=== PATIENT | female | born 1960 | race Caucasian/White ===

== ENCOUNTER → 2020-07-23 | Outpatient (CLI) | payer OTHER ==
--- NOTE | 2020-07-25 16:10 | US ---
EXAMINATION TYPE: US pelvic complete DATE OF EXAM: 07/23/2020 COMPARISON: CT CLINICAL HISTORY: N93.9 ABN UTERINE BLEEDING. Pt states episode of moderate vaginal bleeding for 1 1/ 2 weeks a little over a month ago/ Pt not on HRT's TECHNIQUE: Transabdominal (TA). Transabdominal sonographic images of the pelvis were acquired. Date of LMP: Pt states >10 years ago EXAM MEASUREMENTS: Uterus: 7.3 x 1.9 x 3.7 cm Endometrial Stripe: 0.4 cm Right Ovary: 1.7 x 1.2 x 1.5 cm Left Ovary: 1.7 x 0.8 x 1.6 cm 1. Uterus: Anteverted wnl 2. Endometrium: wnl 3. Right Ovary: wnl 4. Left Ovary: wnl 5. Bilateral Adnexa: wnl 6. Posterior cul-de-sac: wnl IMPRESSION: 1. Normal pelvic ultrasound
== END | disposition home or self-care (01) ==
LOC: RADUSWWP 16:43
PROVIDERS: ATTEND Family Medicine
DX: N93.9 Abnormal uterine and vaginal bleeding, unspecified (principal)
CPT/HCPCS: 76856

== ENCOUNTER → 2021-07-13 | Outpatient (CLI) | payer OTHER ==
--- NOTE | 2021-07-20 09:07 | MM ---
Reason for exam: screening (asymptomatic). Last mammogram was performed 8 months ago. History: Patient is postmenopausal. Family history of breast cancer in sister at age 52. Excisional biopsy of the left breast. Physical Findings: A clinical breast exam by your physician is recommended on an annual basis and results should be correlated with mammographic findings. MG Screening Mammo w CAD Bilateral CC and MLO view(s) were taken. XCCL view(s) were taken of the right breast. Prior study comparison: November 05, 2020, mammogram, performed at [facility]. March 24, 2020, mammogram, performed at [facility]. May 28, 2015, left breast MG 3d work up w/cad LT. May 14, 2015, bilateral MG foundation screening mammo. There are scattered fibroglandular densities. There is no discrete abnormality. ASSESSMENT: Negative, BI-RAD 1 RECOMMENDATION: Routine screening mammogram of both breasts in 1 year.
== END | disposition home or self-care (01) ==
LOC: RADMAMWWP 07:06
PROVIDERS: ATTEND Family Medicine
DX: Z12.31 Encounter for screening mammogram for malignant neoplasm of breast (principal); Z80.3 Family history of malignant neoplasm of breast; Z78.0 Asymptomatic menopausal state
CPT/HCPCS: 77067

== ENCOUNTER → 2021-09-07 | Outpatient (CLI) | payer OTHER ==
[2021-09-07 10:06] VITALS: BP 136/86; PULSE 74; RESP 18; TEMP 97.8
--- NOTE | 2021-09-07 10:57 | P.HPOB ---
History of Present Illness H&P Date: 09/07/21 Chief Complaint: The patient is here for her routine gynecologic exam. This is a 61-year-old 0-3 with an LMP of 2001. The patient is here to establish with this office. She is without gynecologic complaints and denies any postmenopausal bleeding. Review of Systems The patient's weight has been stable over the last year. She denies respiratory, cardiac, or G.I. problems. Musculoskeletal: She has been having right shoulder problems and is seeing somebody for this. Past Medical History Past Medical History: Thyroid Disorder Additional Past Medical History / Comment(s): Hypothyroidism. 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 History of Any Multi-Drug Resistant Organisms: None Reported Past Surgical History: Appendectomy, Breast Surgery, Hernia Repair Additional Past Surgical History / Comment(s): Abdominal hernia repair, left breast biopsy, and 2 surgeries for ectopic pregnancies. Past Psychological History: No Psychological Hx Reported Smoking Status: Never smoker Past Alcohol Use History: None Reported Past Drug Use History: None Reported Additional History: She has been since 1978. She works at [employer]. - Past Family History Sister(s) Family Medical History: Cancer Additional Family Medical History / Comment(s): Breast cancer. Mother Family Medical History: No Reported History Father Family Medical History: Myocardial Infarction ([place]) Medications and Allergies Home Medications Medication Instructions Recorded Confirmed Type Levothyroxine Sodium [Synthroid] 112 mcg PO DAILY 09/07/21 09/07/21 History Allergies Allergy/AdvReac Type Severity Reaction Status Date / Time No Known Allergies Allergy Unverified 09/07/21 10:02 Exam Vital Signs Temp Pulse Resp BP Pulse Ox 09/07/21 10:03 97.8 F 74 18 136/86 98 Intake and Output 09/06/21 09/07/21 09/07/21 22:59 06:59 14:59 Other: Weight 85.729 kg Height 5 feet 1 inch, weight 189 pounds, BMI 35.7. This is a well-developed well-nourished white female who is alert and oriented times 3 in no acute distress. HEENT: Within normal limits. NECK: Supple without mass or thyromegaly. CHEST AND LUNGS: Clear to auscultation. HEART: Regular rate and rhythm. BREASTS: Are without mass or discharge. AXILLARY EXAM: Negative for adenopathy. BACK: Negative for CVA tenderness. ABDOMEN: Soft, nontender, without palpable masses. PELVIC EXAM: Normal external genitalia with mild atrophy. Cervix and vagina appear normal with mild atrophy. The cervix is slightly friable upon doing the Pap smear. There is no unusual discharge. There is no evidence of prolapse. The uterus is midposition, nongravid size and nontender. There are no palpable adnexal masses or tenderness. RECTAL EXAM: Rectovaginal exam is negative for mass or tenderness and is negative for occult blood. EXTREMITIES: Nontender. IMPRESSION: 1. 61-year-old menopausal female with normal gynecologic exam. PLAN: 1. Pap smear cotest was performed. 2. Self breast awareness was discussed with the patient. We have also discussed symptoms associated with inflammatory breast cancer. Screening mammogram was done on 07/13/2021 and was benign. She will repeat this after 1 year. 3. Osteoporosis prevention was discussed. I have stressed the importance of adequate calcium, vitamin D and regular exercise. Recommended amounts of calcium and vitamin D were also discussed. I have recommended bone density screening since she believes she has not had this done. The order slip was given to the patient for this. 4. She has not received a Covid vaccination. She has had Covid twice. She understands the CDC recommends Covid vaccination. She will consider this. 5. Weight control was discussed with the patient. I have stressed the importance of regular meals, good nutrition, and regular exercises. 6. Colorectal cancer screening was discussed. She has not had a colonoscopy. She believes she has done Cologuard testing through her PCP. She will discuss colorectal cancer screening options with her PCP. 7. She was advised to return in one year for her annual well woman exam.
== END ==
LOC: WWCWWP 09:51
PROVIDERS: ATTEND Obstetrics & Gynecology
DX: Z01.419 Encounter for gynecological examination (general) (routine) without abnormal findings (principal); E03.9 Hypothyroidism, unspecified; Z79.890 Hormone replacement therapy

== ENCOUNTER → 2021-11-12 | Outpatient (CLI) | payer OTHER ==
[2021-11-12 14:48] LABS: Basophils # (A) 0.04 X 10*3/uL (0.00-0.10); Basophils % (A) 0.5 %; Eosinophils # (A) 0.11 X 10*3/uL (0.04-0.35); Eosinophils % (A) 1.5 %; HCT 43.1 % (37.2-46.3); HGB 13.4 g/dL (12.0-15.0); Immature Grans, Automated 0.1 %; Lymphocytes # (A) 1.73 X 10*3/uL (0.90-5.00); Lymphocytes % (A) 23.1 %; MCH 27.7 pg (27.0-32.0); MCHC 31.1 g/dL (32.0-37.0); Mean Platelet Volume 11.1 fL (9.5-12.2); Monocytes # (A) 0.52 X 10*3/uL (0.20-1.00); NRBC Per 100 WBC 0 /100 WBCS (0.0-0.0); Neutrophils # (A) 5.07 X 10*3/uL (1.80-7.70); Neutrophils % (A) 67.8 %; Platelet Count 282 X 10*3/uL (140-440); RBC 4.84 X 10*6/uL (4.10-5.20); RDW 14.1 % (11.5-14.5); WBC 7.48 X 10*3/uL (4.50-10.00)
[2021-11-12 14:49] LABS: African American GFR (CKD) 107.6 (60.0-200.0); Anion Gap 10.3 mmol/L (10.00-18.00); BUN/Creat Ratio 23.3 Ratio (12.00-20.00); Blood Urea Nitrogen 16.4 mg/dL (9.0-27.0); Carbon Dioxide 25.7 mmol/L (20.0-27.5); Non-African American GFR(CKD) 92.9 (60.0-200.0); Potassium 3.9 mmol/L (3.5-5.5)
== END | disposition home or self-care (01) ==
LOC: LABPAT 09:06
PROVIDERS: ATTEND Orthopaedic Surgery
DX: Z01.812 Encounter for preprocedural laboratory examination (principal); M75.41 Impingement syndrome of right shoulder
CPT/HCPCS: 80048; 85025; 93005

== ENCOUNTER 2021-11-26 06:05 | Day surgery (SDC) | payer OTHER ==
[2021-11-24 15:33] VITALS: BMI 34.7
--- NOTE | 2021-11-25 13:22 | HP ---
HISTORY AND PHYSICAL CHIEF COMPLAINT: Right shoulder pain. HISTORY OF PRESENT ILLNESS: The patient is a 61-year-old female who presents with progressive right shoulder pain that began about two years ago. She did have an injury. She is having anterolateral pain that radiates. She is having pain with overhead use and at night. She has tried medications in addition to injections and exercises, without much relief. She notes daily pain and symptoms. PAST MEDICAL HISTORY: Otherwise negative. PAST SURGICAL HISTORY: Negative. CURRENT MEDICATIONS: None. ALLERGIES: SHE DENIES DRUG ALLERGIES. FAMILY HISTORY: Negative. SOCIAL HISTORY: Negative for current tobacco or alcohol use. REVIEW OF SYSTEMS: Sixteen-point review of systems otherwise is reviewed and is noncontributory. PHYSICAL EXAMINATION: On examination, the patient is approximately 5 feet 1 inch, 184 pounds of endomorphic habitus. HEENT exam is nonfocal. Neck is supple. On examination of the right shoulder, she is tender about the anterior subacromial space. She has moderate crepitus. Active range of motion: Forward elevation 110 degrees, external rotation of the arm at side 50 degrees, internal rotation to L3. Motor strength 4+ over 5 for external rotation with the arm at side, 4- over 5 for abduction. Impingement test, Neer test and Speed test are positive. Her distal neurovascular exam appears intact in the right upper extremity. MRI report right shoulder was reviewed and shows a retracted rotator cuff tear with some fatty infiltration. Fluid surrounding the proximal biceps is noted. IMPRESSION: 1. Right rotator cuff tear, symptomatic. 2. Right proximal bicipital tendinosis. RECOMMENDATIONS: I talked to the patient at length regarding her condition along with treatment options. At this point she is having persistent pain and weakness despite previous conservative measures. After thorough discussion, she opts to proceed with surgery. We will plan to proceed with arthroscopic evaluation with probable subacromial decompression, rotator cuff debridement versus repair, and possible biceps tenotomy. We will likely perform that as an outpatient procedure. Risks and benefits were discussed at length in layman's terms. MMODL / IJN: [id number] /
[~2021-11-26 06:05] MED LIST: DEXAMETHASONE SOD PHOSPHATE 4 MG/ML 1 ML VIAL IV ONE; LACTATED RINGERS 1,000 ML IV SCH; MIDAZOLAM 2 MG/2 ML VIAL IV PRN; ONDANSETRON 4 MG/2 ML VIAL IVP ONE; SCOPOLAMINE 1 MG/72 HR PATCH TRANSDERM ONE
[2021-11-26] MEDS ORDERED: HYDROmorphone 0.5 MG/0.5 ML SYRINGE IVP PRN (07:00)
[2021-11-26] MEDS ORDERED: MIDAZOLAM 2 MG/2 ML VIAL IVP ONE (07:16)
[2021-11-26] MEDS ORDERED: fentaNYL (PF) 50 MCG/ML 2 ML AMP IVP ONE (07:16)
[2021-11-26] MEDS ORDERED: NEOSTIGMINE 1 MG/ML 10 ML VIAL ONE (07:45)
[2021-11-26] MEDS ORDERED: MIDAZOLAM 2 MG/2 ML VIAL ONE (07:45)
[2021-11-26] MEDS ORDERED: LIDOCAINE 1% INJ 10MG/ML (20 ML MDV) ONE (07:45)
[2021-11-26] MEDS ORDERED: EPINEPHrine (PF) 1 ML in SODIUM CHLORIDE 0.9% IRRIGATIO 3,000 ML IRRIGATION ONE ×8 (07:45)
[2021-11-26] MEDS ORDERED: fentaNYL (PF) 50 MCG/ML 2 ML AMP ONE (07:45)
[2021-11-26] MEDS ORDERED: PROPOFOL 10 MG/ML 20 ML VIAL IV ONE (07:45)
[2021-11-26] MEDS ORDERED: KETOROLAC 15 MG/ML 1 ML VIAL ONE (07:45)
[2021-11-26] MEDS ORDERED: GLYCOPYRROLATE 0.2 MG/ML 2 ML VIAL ONE (07:45)
[2021-11-26] MEDS ORDERED: ROCURONIUM 10 MG/ML (5 ML VIAL) IV ONE (07:45)
[2021-11-26] MEDS ORDERED: ROPIVACAINE 5 MG/ML 30 ML VIAL ONE (07:45)
--- NOTE | 2021-11-26 09:22 | P.OP ---
Date of Procedure: 11/26/21 Preoperative Diagnosis: Symptomatic right rotator cuff tear Postoperative Diagnosis: 4 cm retracted rotator cuff tear/high-grade partial-thickness tear intra- articular portion proximal biceps Procedure(s) Performed: Right shoulder arthroscopic subacromial decompression/biceps tenotomy/rotator cuff repair Implants: Arthrex 4.75 mm swivel lock anchor times one, 5.5 mm swivel lock anchor 1 Anesthesia: tiny KIMBALL Surgeon: Devon Meek Card Cutter Helper #1: Thang Viera Estimated Blood Loss (ml): 10 Pathology: none sent Condition: stable Disposition: PACU Indications for Procedure: The patient's 61-year-old female who presents with progressive right shoulder pain despite conservative measures. A discussion of the risks and benefits of operative intervention versus continued conservative measures was made with the patient. She opted proceed with surgery. Operative risks to include infection, neurovascular injury, development of blood clots, possible tendon rerupture, possible persistent/worsening symptoms and need for subsequent procedures was discussed. Informed consent was obtained. Operative Findings: As below Description of Procedure: The patient was brought to the operating room, and after induction of general anesthesia was placed in a beachchair position. A preoperative interscalene block was placed for postoperative analgesia. I examined the right shoulder. There was no gross block to passive motion or gross glenohumeral instability. The right upper extremity was prepped and draped in normal fashion. The bony outlines the acromion, distal clavicle, and coracoid process were outlined with a skin marker. The glenohumeral joint was inflated with 50 mL of saline utilizing a spinal needle from posterior approach. A posterior portal was made through a 5 mm skin incision 1 cm medial and inferior to the posterior lateral border time. A blunt trocar was used to easily into the joint. Diagnostic arthroscopy was performed. An anterior portal was made just lateral to the coracoid process entering the joint above the subscapularis tendon. The subscapularis tendon appeared to be intact. Anterior labrum was intact. The inferior recess was inspected. The posterior labrum was intact. There was a high-grade partial-thickness tear of the long head of the biceps involving interarticular portion. I elected to proceed with release at this point. This was released from the superior labrum with electrocautery and was allowed to retract to the bicipital groove. On inspection the rotator cuff, a large retracted tear involving the supraspinatus and infraspinatus was noted that was retracted to the level of the glenoid. The arthroscope was placed into the subacromial space. A lateral portal was made 2 centimeters inferior to the a nterior lateral border of the acromion. The rotator cuff was then mobilized with a traction suture. Adhesions were released utilizing shaver to help mobilize the tissue. I was able to bring the posterior portion of the tear back to the greater tuberosity. The soft tissue on the undersurface of the acromion was debrided with a motorized shaver and electrocautery clearly defining the anterior medial and lateral borders as well as the distal clavicle. An anterior inferior acromioplasty was performed with a motorized nathan starting anterolateral, then extending this posteriorly, then extending this medially. I converted to a flat acromion and this was verified in the posterior and lateral viewing portals. The greater tuberosity was lightly decorticating with a shaver down to a bleeding bony surface. An accessory superior lateral portal was made just off the lateral edge of the acromion for anchor placement. A 4.75 mm swivel lock anchor was placed just off the articular surface along the posterior aspect of the greater tuberosity. Good purchase was obtained. The #2 fiber tape was passed through the posterior portion the rotator cuff. A lateral anchor was placed utilizing all the traction sutures along with the fiber tape. 5.5 mm swivel lock anchor was inserted. At this point I felt I had sabianism of some posterior coverage. The anterior aspect of the cuff was not repairable. A sterile dressing was applied in addition to an abductor brace. The patient was then awoken from general anesthesia and transferred to recovery room in good condition. Blood loss was estimated at 10 mL. No complications were incurred. Sponge and needle counts were correct in the case. Thang LEAL assisted and the major components of the case to include arm positioning, anchor placement, and rotator cuff repair.
[2021-11-26 09:51] VITALS: TEMP 97
[2021-11-26 10:06] VITALS: RESP 16
[2021-11-26] MEDS ORDERED: LACTATED RINGERS 1,000 ML IV ONE (10:06)
[2021-11-26 11:01] VITALS: BP 107/66; PULSE 69
--- NOTE | 2021-11-26 14:01 | P.ANPRN ---
Procedure Note - Anesthesia - Nerve Block Performed Right Interscalene Time Out Performed: Yes (07:15) Date of Procedure: 11/26/21 Procedure Start Time: Procedure Stop Time: Location of Patient: PreOp Indication: Acute Post-Operative Pain, Requested by Surgeon (DR Meek) Sedation Type: Sedate with meaningful contact maintained Preparation: Sterile Prep Position: Supine Catheter: None Needle Types: Pajunk Needle Gauge: Other (see comment) (22g) Ultrasound used to visualize needle placement: Yes Ultrasound used to observe medication spread: Yes Injectate: 0.5% Ropivacaine (see comment for volume) (15cc) Blood Aspirated: No Pain Paresthesia on Injection Noted: No Resistance on Injection: Normal Image Stored and Saved: Yes Events: Uneventful and Well Tolerated
== END 2021-11-26 11:13 | disposition home or self-care (01) ==
LOC: OR 06:05
PROVIDERS: ATTEND Orthopaedic Surgery
DX: M75.101 Unspecified rotator cuff tear or rupture of right shoulder, not specified as traumatic (principal); M75.41 Impingement syndrome of right shoulder; G89.18 Other acute postprocedural pain
CPT/HCPCS: 29827; 29828; 29826; 64415; 76942; C1713 ×3; C1894; J2250; J1100; J2710; J0690; J2405; J0171; J2001; J3010; J2795; J1885; J2704

== ENCOUNTER → 2022-09-13 | Outpatient (CLI) | payer OTHER ==
[2022-09-13 07:52] VITALS: BP 125/82; PULSE 57; RESP 17; TEMP 98
--- NOTE | 2022-09-13 08:33 | P.HPOB ---
History of Present Illness H&P Date: 09/13/22 Chief Complaint: The patient is here for her routine gynecologic exam and ma mmogram. This is a 62-year-old with an LMP of 2001. The patient is without gynecologic complaints and denies any postmenopausal bleeding. Review of Systems The patient has gained 8 pounds over the last year. She denies respiratory, cardiac, or G.I. problems. Past Medical History Past Medical History: Thyroid Disorder Additional Past Medical History / Comment(s): Hypothyroidism. 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 History of Any Multi-Drug Resistant Organisms: None Reported Past Surgical History: Appendectomy, Breast Surgery, Hernia Repair, Orthopedic Surgery Additional Past Surgical History / Comment(s): Abdominal hernia repair, left breast biopsy, and 2 surgeries for ectopic pregnancies. Right rotator cuff surgery. Past Psychological History: No Psychological Hx Reported Smoking Status: Never smoker Past Alcohol Use History: None Reported Past Drug Use History: None Reported - Past Family History Sister(s) Family Medical History: Cancer Additional Family Medical History / Comment(s): Breast cancer. Mother Family Medical History: No Reported History Father Family Medical History: Dementia, Myocardial Infarction ([place]) Additional Family Medical History / Comment(s): . Medications and Allergies Home Medications Medication Instructions Recorded Confirmed Type Levothyroxine Sodium [Synthroid] 112 mcg PO QAM 09/07/21 09/13/22 History Allergies Allergy/AdvReac Type Severity Reaction Status Date / Time No Known Allergies Allergy Verified 09/13/22 07:48 Exam Vital Signs Temp Pulse Resp BP Pulse Ox 09/13/22 07:50 98 F 57 L 17 125/82 95 Intake and Output 09/12/22 09/13/22 09/13/22 22:59 06:59 14:59 Other: Weight 89.358 kg Height 5 feet 1 inch, weight 197 pounds, BMI 37.2. This is a well-developed well-nourished white female who is alert and oriented times 3 in no acute distress. HEENT: Within normal limits. NECK: Supple without mass or thyromegaly. CHEST AND LUNGS: Clear to auscultation. HEART: Regular rate and rhythm. BREASTS: Are without mass or discharge. AXILLARY EXAM: Negative for adenopathy. BACK: Negative for CVA tenderness. ABDOMEN: Soft, nontender, without palpable masses. PELVIC EXAM: Normal external genitalia with mild atrophy. Cervix and vagina appear normal with mild atrophy. There is no unusual discharge. There is no evidence of prolapse. The uterus is midposition, nongravid size and nontender. There are no palpable adnexal masses or tenderness. RECTAL EXAM: Rectovaginal exam is negative for mass or tenderness and is negative for occult blood. EXTREMITIES: Nontender. IMPRESSION: 1. 62-year-old menopausal female with normal gynecologic exam. PLAN: 1. Pap smear was deferred since she had a negative Pap smear cotest on 09/07/2021. 2. Self breast awareness was discussed with the patient. We have also discussed symptoms associated with inflammatory breast cancer. 3. Screening mammogram will be done today. 4. Osteoporosis prevention was discussed. I have stressed the importance of adequate calcium, vitamin D and regular exercise. Recommended amounts of calcium and vitamin D were also discussed. I have recommended a bone density test since she has never had one done. She is declining the order slip today, but would like to do it next year at her annual well woman examination. 5. She was advised to return in one year for her annual well woman exam.
--- NOTE | 2022-09-14 08:23 | MM ---
Reason for Exam: Screening (asymptomatic). Last mammogram was performed 1 year(s) and 2 month(s) ago. Patient History: Menarche at age 14. First Full-Term at age 19. Postmenopausal. Patient has history of breast feeding. Excisional Biopsy on the Left side. Sister had breast cancer, age 52. Risk Values: Carey 5 year model risk: 3.1%. NCI Lifetime model risk: 13.4%. Prior Study Comparison: 03/24/2020 Screening Mammogram, [facility]. 11/05/2020 Screening Mammogram, [facility]. 07/13/2021 Bilateral Screening Mammogram, [facility]. Tissue Density: There are scattered fibroglandular densities. Findings: Analyzed By CAD. There is no suspicious group of microcalcifications or new suspicious mass in either breast. Overall Assessment: Negative, BI-RAD 1 Management: Screening Mammogram of both breasts in 1 year. A clinical breast exam by your physician is recommended on an annual basis and results should be correlated with mammographic findings. Electronically signed and approved by: Bj Thornton M.D. Radiologis
== END ==
LOC: WWCWWP 07:41
PROVIDERS: ATTEND Obstetrics & Gynecology
DX: Z01.419 Encounter for gynecological examination (general) (routine) without abnormal findings (principal); E07.9 Disorder of thyroid, unspecified; Z79.890 Hormone replacement therapy
CPT/HCPCS: 77067

== ENCOUNTER 2023-11-10 07:33 | Day surgery (SDC) | payer OTHER ==
[2023-11-06 16:20] VITALS: BMI 37.5
--- NOTE | 2023-11-09 09:02 | P.HPOR ---
History of Present Illness H&P Date: 11/09/23 Chief Complaint: Left shoulder pain Patient is a 63-year-old [id number] female presents with left shoulder pain that began after an injury in June 2022. She notes anterior lateral pain with overhead activity. She notes weakness. She tried therapy in the past that much relief. She is having night symptoms. Review of Systems As per HPI Past Medical History Past Medical History: Hypertension, Thyroid Disorder Additional Past Medical History / Comment(s): Hypothyroidism. History of Any Multi-Drug Resistant Organisms: None Reported Past Surgical History: Appendectomy, Breast Surgery, Hernia Repair, Orthopedic Surgery Additional Past Surgical History / Comment(s): Abdominal hernia repair, left breast biopsy, and 2 surgeries for ectopic pregnancies. Right rotator cuff surgery. Past Anesthesia/Blood Transfusion Reactions: No Reported Reaction Smoking Status: Never smoker - Past Family History Sister(s) Family Medical History: Cancer Additional Family Medical History / Comment(s): Breast cancer. Mother Family Medical History: No Reported History Father Family Medical History: Dementia, Myocardial Infarction ([place]) Additional Family Medical History / Comment(s): . Medications and Allergies Home Medications Medication Instructions Recorded Confirmed Type Levothyroxine Sodium [Synthroid] 112 mcg PO QAM 09/07/21 11/06/23 History Acetaminophen [Tylenol Extra 500 - 1,000 mg PO Q8HR PRN 11/06/23 11/06/23 History Strength] Ibuprofen [Motrin Ib] 200 - 400 mg PO Q8H PRN 11/06/23 11/06/23 History Losartan-Hctz 50-12.5 mg [Hyzaar 1 tab PO DAILY 11/06/23 11/06/23 History 50-12.5] Allergies Allergy/AdvReac Type Severity Reaction Status Date / Time No Known Allergies Allergy Verified 11/06/23 15:52 Physical Examination - Shoulder left Tenderness with palpation: anterior, bicipital groove Pain: with abduction, with forward flexion ROM: forward flexion: 120 degrees ROM: internal rotation: lower lumbar ROM: external rotation: 60 degrees Crepitus with motion: Yes Strength: abduction: 4/5 Strength: external rotation: 5/5 Tests: internal impingement tests: positive, external impingment tests: positive Results The patient is a well-developed well-nourished female approximately 5 foot 1, 197 pounds of endomorphic habitus. HEENT exam is nonfocal, neck is supple. She's tender about the left shoulder anterior subacromial space. Moderate crepitus is noted. Impingement test, Neer test are positive. Her distal neurovascular exam appears intact in the left upper extremity. - Diagnostic results Shoulder MRI: image reviewed (MRI of the left shoulder is reviewed and shows a partial thickness tear involving the anterior supraspinatus.) Assessment and Plan Assessment: Left shoulder impingement/high-grade partial-thickness rotator cuff tear Plan: I talked to the patient at length regarding her condition along with treatment options. At this point she is quite symptomatic having pain and weakness despite previous conservative measures. After a thorough discussion she opts to proceed with surgery. We'll plan to proceed with arthroscopy left shoulder with probable subacromial decompression, rotator cuff debridement versus repair. We will likely perform as an outpatient procedure. Risks and benefits were discussed at length in layman's terms.
[~2023-11-10 07:33] MED LIST changes: +HYDROmorphone 0.5 MG/0.5 ML SYRINGE IVP PRN; -LACTATED RINGERS 1,000 ML IV SCH; -MIDAZOLAM 2 MG/2 ML VIAL IV PRN
[2023-11-10] MEDS: LACTATED RINGERS 1,000 ML IV SCH (08:26)
[2023-11-10] MEDS: ONDANSETRON 4 MG/2 ML VIAL IVP ONE (08:33)
[2023-11-10] MEDS: DEXAMETHASONE SOD PHOSPHATE 4 MG/ML 1 ML VIAL IVP ONE (08:33)
[2023-11-10] MEDS: MIDAZOLAM 2 MG/2 ML VIAL IV PRN (09:13)
[2023-11-10] MEDS ORDERED: SUCCINYLCHOLINE CHLORIDE 200 MG/10 ML VIAL IV ONE (09:55)
[2023-11-10] MEDS ORDERED: LIDOCAINE 1% INJ 10MG/ML (20 ML MDV) ONE (09:55)
[2023-11-10] MEDS ORDERED: PROPOFOL 10 MG/ML 20 ML VIAL IV ONE (09:55)
[2023-11-10] MEDS ORDERED: NEOSTIGMINE 1 MG/ML 10 ML VIAL ONE (09:55)
[2023-11-10] MEDS ORDERED: MIDAZOLAM 2 MG/2 ML VIAL ONE (09:55)
[2023-11-10] MEDS ORDERED: PHENYLEPHRINE 10 MG/ML VIAL ONE (09:55)
[2023-11-10] MEDS ORDERED: ROPIVACAINE 5 MG/ML 30 ML VIAL ONE (09:55)
[2023-11-10] MEDS ORDERED: fentaNYL (PF) 50 MCG/ML 2 ML AMP ONE (09:55)
[2023-11-10] MEDS ORDERED: GLYCOPYRROLATE 0.2 MG/ML 2 ML VIAL ONE (09:55)
[2023-11-10] MEDS ORDERED: ROCURONIUM 10 MG/ML (5 ML VIAL) IV ONE (09:55)
[2023-11-10] MEDS ORDERED: DEXAMETHASONE SOD PHOSPHATE 4 MG/ML 1 ML VIAL ONE (09:55)
--- NOTE | 2023-11-10 09:57 | P.ANPRN ---
Procedure Note - Anesthesia - Nerve Block Performed Left Interscalene Single Time Out Performed: Yes Date of Procedure: 11/10/23 Procedure Start Time: :12 Procedure Stop Time: :20 Location of Patient: PreOp Indication: Acute Post-Operative Pain, Dx/Pain Location (Left shoulder pain ), Requested by Surgeon Sedation Type: Sedate with meaningful contact maintained Preparation: Sterile Prep Position: Supine Catheter: None Needle Types: Pajunk Needle Gauge: 21 Ultrasound used to visualize needle placement: Yes Ultrasound used to observe medication spread: Yes Injectate: 0.5% Ropivacaine (see comment for volume) (20ml 0.5% Ropivacaine with 4mg Dexamethasone) Blood Aspirated: No Pain Paresthesia on Injection Noted: No Resistance on Injection: Normal Image Stored and Saved: Yes Events: Uneventful and Well Tolerated
[2023-11-10] MEDS: EPINEPHrine (PF) 1 ML in SODIUM CHLORIDE 0.9% IRRIGATIO 3,000 ML IRRIGATION ONE ×4 (10:00)
--- NOTE | 2023-11-10 11:22 | P.OP ---
Date of Procedure: 11/10/23 Preoperative Diagnosis: Left shoulder impingement/rotator cuff tear Postoperative Diagnosis: 2 cm rotator cuff tear, high-grade partial-thickness tear intra-articular portion long head of the biceps Procedure(s) Performed: Left shoulder arthroscopic subacromial decompression/biceps tenotomy/rotator cuff repair Implants: Arthrex 4.75 mm swivel lock anchor 1, 5.5 mm swivel lock anchor 1 Anesthesia: MICHELA, regional Surgeon: Devon Meek Applications Analyst #1: Thang Viera Estimated Blood Loss (ml): 10 Pathology: none sent Condition: stable Disposition: PACU Indications for Procedure: The patient is a 63-year-old female presents with persistent/progressive left shoulder pain and weakness despite conservative measures. A discussion of the risks and benefits of operative intervention versus continued conservative measures was made with the patient. She opted to proceed with surgery. Operative risks to include infection, neurovascular injury, development of blood clots, possible tendon rerupture, possible postoperative stiffness and possible need for subsequent procedures was discussed. Informed consent was obtained. Operative Findings: As below Description of Procedure: The patient was brought to the operating room, and after induction of general anesthesia was placed in a beachchair position. A preoperative interscalene block was placed for postoperative analgesia. I examined the left shoulder. There was no gross block to passive motion or gross glenohumeral instability. The left upper extremity was prepped and draped in normal fashion. The bony outlines the acromion, distal clavicle, and coracoid process were outlined with a skin marker. The glenohumeral joint was inflated with 50 mL of saline utilizing a spinal needle from posterior approach. A posterior portal was made through a 5 mm skin incision 1 cm medial and inferior to the posterior lateral border time. A blunt trocar was used to easily into the joint. Diagnostic arthroscopy was performed. An anterior portal was made just lateral to the coracoid process entering the joint above the subscapularis tendon. The subscapularis tendon appeared to be intact. Anterior labrum was intact. The inferior recess was inspected. The posterior labrum was intact. There was a high-grade partial-thickness tear of the long head of the biceps involving interarticular portion. It was elected to proceed with release at this point. It was released from the superior labrum with electrocautery and was allowed to retract to the bicipital groove. On inspection the rotator cuff, a full-thickn ess tear involving the anterior supraspinatus was noted measuring approximately 2 cm. No significant retraction was noted. The arthroscope was then placed into the subacromial space. A lateral portal was made 2 centimeters inferior to the anterior lateral border of the acromion. The rotator cuff was then mobilized with a traction suture. This was then easily brought back to the greater tuberosity. The soft tissue on the undersurface of the acromion was debrided with a motorized shaver and electrocautery clearly defining the anterior medial and lateral borders as well as the distal clavicle. An anterior inferior acromioplasty was performed with a motorized nathan starting anterolateral, then extending this posteriorly, then extending this medially. I converted to a flat acromion and this was verified in the posterior and lateral viewing portals. The greater tuberosity was lightly decorticating with a shaver down to a bleeding bony surface. An accessory superior lateral portal was made just off the lateral edge of the acromion for anchor placement. A 4.75 mm swivel lock anchor was then placed just off the articular surface with the appropriate starting awl. Good purchase was obtained. These fiber tapes were then passed the rotator cuff with a scorpion suture passer. A fiber link was placed into the central portion of the tear for additional fixation. A lateral row was created utilizing these tapes along with the fiber link. A 5.5 mm swivel lock anchor was placed laterally. Good purchase was obtained. Final arthroscopic view showed adequate compression at the footprint. The arthroscope was then removed. The portals were closed with simple 3-0 nylon sutures. A sterile dressing was applied in addition to a sling. The patient was then awoken from general anesthesia and transferred to recovery room in good condition. Blood loss was estimated at 10 mL. No complications were incurred. Sponge and needle counts were correct in the case. Thang LEAL assisted and the major components of the case to include arm positioning, anchor placement, and rotator cuff repair.
[2023-11-10] MEDS: LACTATED RINGERS 1,000 ML IV ONE ×2 (11:25→12:04)
[2023-11-10 11:39] VITALS: TEMP 98.2
[2023-11-10 12:53] VITALS: BP 110/67; PULSE 84; RESP 18
== END 2023-11-10 13:13 | disposition home or self-care (01) ==
LOC: OR 07:33
PROVIDERS: ATTEND Orthopaedic Surgery
DX: M75.112 Incomplete rotator cuff tear or rupture of left shoulder, not specified as traumatic (principal); S46.112A Strain of muscle, fascia and tendon of long head of biceps, left arm, initial encounter; G89.18 Other acute postprocedural pain; I10 Essential (primary) hypertension; E03.9 Hypothyroidism, unspecified; Z79.890 Hormone replacement therapy; Z79.899 Other long term (current) drug therapy; X58.XXXA Exposure to other specified factors, initial encounter
CPT/HCPCS: 64415; 84132; 29827; 29828; 29826; C1713 ×2; C1894; J2250; J0330; J1100; J2710; J0690; J2405; J0171; J2001; J3010; J2795; J2704; J2371

== ENCOUNTER → 2024-03-05 | Outpatient (CLI) | payer OTHER ==
[2024-03-05 14:11] VITALS: BP 147/85; PULSE 68; RESP 17; TEMP 98.3
--- NOTE | 2024-03-05 15:01 | P.HPOB ---
History of Present Illness H&P Date: 03/05/24 Chief Complaint: The patient is here for her routine gynecologic exam and ma mmogram. This is a 64-year-old -0-2-3 with an LMP of 2001. The patient states she has been experiencing a very slight discharge that she thinks may be urine. She also occasionally notices a pinkish tinge to this discharge. She denies any vaginal odor or vaginal itching. She is otherwise without complaints. Review of Systems The patient has gained 9 pounds over the last year. She denies respiratory, cardiac, or G.I. problems. Past Medical History Past Medical History: Hypertension, Thyroid Disorder Additional Past Medical History / Comment(s): Hypothyroidism. 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 History of Any Multi-Drug Resistant Organisms: None Reported Past Surgical History: Appendectomy, Breast Surgery, Hernia Repair, Orthopedic Surgery Additional Past Surgical History / Comment(s): Abdominal hernia repair, left breast biopsy, and 2 surgeries for ectopic pregnancies. Bilateral rotator cuff surgery. Past Anesthesia/Blood Transfusion Reactions: No Reported Reaction Past Psychological History: No Psychological Hx Reported Smoking Status: Never smoker Past Alcohol Use History: None Reported Past Drug Use History: None Reported Additional History: She has been since 1978. She works in a [employer] station. - Past Family History Sister(s) Family Medical History: Cancer, Liver Disease Additional Family Medical History / Comment(s): Breast cancer. Mother Family Medical History: No Reported History Father Family Medical History: Dementia, Myocardial Infarction (MA) Additional Family Medical History / Comment(s): . Medications and Allergies Home Medications Medication Instructions Recorded Confirmed Type Levothyroxine Sodium [Synthroid] 112 mcg PO QAM 09/07/21 11/10/23 History Acetaminophen [Tylenol Extra 500 - 1,000 mg PO Q8HR PRN 11/06/23 11/10/23 History Strength] Losartan-Hctz 50-12.5 mg [Hyzaar 1 tab PO DAILY 11/06/23 11/10/23 History 50-12.5] Allergies Allergy/AdvReac Type Severity Reaction Status Date / Time No Known Allergies Allergy Verified 03/05/24 14:08 Exam Vital Signs Temp Pulse Resp BP Pulse Ox 03/05/24 14:09 98.3 F 68 17 147/85 97 Intake and Output 03/04/24 03/05/24 03/05/24 22:59 06:59 14:59 Other: Weight 93.44 kg Height 5 foot 1 inch, weight 206 pounds, BMI 38.9. This is a well-developed well-nourished white female who is alert and oriented times 3 in no acute distress. HEENT: Within normal limits. NECK: Supple without mass or thyromegaly. CHEST AND LUNGS: Clear to auscultation. HEART: Regular rate and rhythm. BREASTS: Are without mass or discharge. AXILLARY EXAM: Negative for adenopathy. BACK: Negative for CVA tenderness. ABDOMEN: Soft, nontender, without palpable masses. There are 2 areas of scaly rough patches which the patient states have been very itchy for several months. These are both on the lower abdomen, one on the left lower quadrant is about the size of a quarter and the 1 in the right lower quadrant is about the size of a nickel. PELVIC EXAM: Normal external genitalia with mild atrophy. Cervix and vagina appear normal with mild atrophy. There is no unusual discharge. There is no evidence of prolapse. The uterus is midposition, nongravid size and nontender. There are no palpable adnexal masses or tenderness. RECTAL EXAM: Rectovaginal exam is negative for mass or tenderness and is positive for occult blood. EXTREMITIES: Nontender. IMPRESSION: 1. 64-year-old menopausal female with normal gynecologic exam. 2. The patient has noticed a slight vaginal discharge which can be pink at times. Differential diagnosis will include slight hematuria or small vaginal bleeding. 3. Heme positive stool with rectal exam. She states she does have a history of hemorrhoids but denies any recent rectal bleeding rectal bleeding. 4. Elevated blood pressure. Patient states she has not yet taken her blood pressure medicine today. 5. Dry scaly patches of skin on her lower abdomen. Possible early seborrheic keratosis. PLAN: 1. Pap smear was deferred since she had a negative Pap smear cotest on 09/07/2021. 2. Self breast awareness was discussed with the patient. We have also disc ussed symptoms associated with inflammatory breast cancer. 3. Screening mammogram will be done today. 4. The patient states she had a negative Cologuard testing within the past year. Because of her history of hemorrhoids the heme positive stool could be related to that. Plan on having her repeat the fecal occult blood test in approximately 2 weeks. I recommended that she keep her stools as soft as possible for the next 2 weeks. She can use a stool softener for this. A fecal occult blood test kit was given to the patient. She will return this to the lab for developing. Samples will be taken from 2 consecutive bowel movements. If this is positive I will will recommend colonoscopy testing. She understands it follow-up for this is important. 5. Pelvic ultrasound is recommended to determine endometrial thickness. This is being done because of the possibility of a small amount of postmenopausal vaginal bleeding. 6. Urine will be obtained for urinalysis and culture with sensitivity. 7. Kenalog 0.1% cream twice daily as needed for itching and irritation of the patches of scaly itchy skin on her lower abdomen. If this does not improve within the next 2 to 3 weeks, I have recommended that she seek the opinion of a surg tech for this. 8. She is to check her own blood pressure at home on a regular basis and follow-up with her PCP for blood pressure elevations. She will take her blood pressure medication after leaving today 9. Osteoporosis prevention was discussed. I have stressed the importance of adequate calcium, vitamin D and regular exercise. Recommended amounts of calcium and vitamin D were also discussed. Bone density testing will be done today. 10. She was advised to return in one year for her annual well woman exam and as needed.
--- NOTE | 2024-03-06 10:34 | BD ---
EXAMINATION TYPE: Axial Bone Density DATE OF EXAM: 03/05/2024 CLINICAL HISTORY: 64 years old Female. ICD-10 CODE: Z780 POST KALE WITHOUT HRT Height: 60in Weight: 206lb FRAX RISK QUESTIONS: Family History (Parent hip fracture): yes Secondary Osteoporosis: 3. Menopause before 45: yes RISK FACTORS HISTORY OF: MEDICATIONS: Thyroid Medications: Which medication: Synthroid How Lon years EXAM MEASUREMENTS: Bone mineral densitometry was performed using the [employer] System. Bone mineral density as measured about the Lumbar spine is: ----- L1-L4(G/cm2): 1.048 T Score Values are as follows: ----- L1: -1.5 ----- L2: -0.7 ----- L3: -0.9 ----- L4: -1.5 ----- L1-L4: -1.1 Z Score Values are as follows: ----- L1: -0.9 ----- L2: -0.1 ----- L3: -0.3 ----- L4: -0.9 ----- L1-L4: -0.5 First dexa at [facility] Bone mineral density about the R hip (g/cm2): 0.929 Bone mineral density about the L hip (g/cm2): 0.966 T Score values are as follows: -----R Neck: -1.8 -----L Neck: -1.8 -----R Total: -0.6 -----L Total: -0.3 Z Score values are as follows: -----R Neck: -1.0 -----L Neck: -1.0 -----R Total: -0.2 -----L Total: 0.1 First dexa at [facility] FRAX%s: The graph provided illustrates a 16.9% chance for a major osteoporotic fx and a 1.1% chance f or the hips probability for fx in 10 years time. IMPRESSION: Osteopenia (T Score between -2.5 and -1). There is slightly increased risk of fracture and the patient may be considered for treatment. Re-Screen 2-5 years. NOTE: T-SCORE=SD OF THE YOUNG ADULT MEAN.
--- NOTE | 2024-03-07 09:59 | MM ---
Reason for Exam: Screening (asymptomatic). Last mammogram was performed 1 year(s) and 6 month(s) ago. Patient History: Menarche at age 14. First Full-Term at age 19. Postmenopausal. Patient has history of breast feeding. Excisional Biopsy on the Left side. Sister had breast cancer, age 52. Risk Values: Carey 5 year model risk: 3.2%. NCI Lifetime model risk: 12.6%. Prior Study Comparison: 11/05/2020 Screening Mammogram, [facility]. 07/13/2021 Bilateral Screening Mammogram, [facility]. 09/13/2022 Bilateral MG screening mammo w CAD, [facility]. Tissue Density: There are scattered areas of fibroglandular density. Findings: Analyzed By CAD. There is no suspicious group of microcalcifications or new suspicious mass in either breast. Overall Assessment: Benign, BI-RAD 2 Management: Screening Mammogram of both breasts in 1 year. . Patient should continue monthly self-breast exams. A clinical breast exam by your physician is recommended on an annual basis. This exam should not preclude additional follow-up of suspicious palpable abnormalities. Note on Carey scores and lifetime risk: 1. A Carey score greater than 3% is considered moderate risk. If this is the case, consider specialist referral to assess eligibility for a risk reducing agent. 2. If overall lifetime risk for the development of breast cancer is 20% or higher, the patient may qualify for future screening with alternating mammogram and breast MRI. Electronically signed and approved by: Bj Thornton M.D. Radiologis
--- NOTE | 2024-03-07 10:08 | P.PN ---
Progress Note - Text Progress Note Date: 03/07/24 OUTPATIENT FOLLOW-UP NOTE TEST(S)/RESULTS: Urinalysis done on 03/05/2024 show a turbid appearance, trace protein, trace blood, trace leukocyte esterase, 3-5 red blood cells per high- power field, 11-20 white blood cells per high-powered field, calcium oxalate crystals, and 1+ bacteria. METHOD OF NOTIFICATION: Patient notified by phone on 03/07/2024. PATIENT COMMENTS: She has had some urinary frequency. She also thinks she has noticed this pinkish discharge which she thought may have been urine. 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 DIAGNOSIS: Hematuria, probable cystitis UTI. The possibility of kidney stones without pain is also diagnosis. DISCUSSION: Macrobid twice daily x 7 days p.o. Electronic prescription will be sent to [facility] in [place]. I have also encouraged her to drink plenty of fluids. She should also still proceed with the pelvic ultrasound as recommended. She was also reminded to check her blood pressure on a regular basis, and send in some samples for fecal occult blood testing. PLAN: As above. Await urine culture, which is pending.
== END ==
LOC: WWCWWP 13:40
PROVIDERS: ATTEND Obstetrics & Gynecology
DX: Z12.31 Encounter for screening mammogram for malignant neoplasm of breast (principal); N89.8 Other specified noninflammatory disorders of vagina; R19.5 Other fecal abnormalities; R03.0 Elevated blood-pressure reading, without diagnosis of hypertension; Z87.19 Personal history of other diseases of the digestive system; Z80.3 Family history of malignant neoplasm of breast; Z78.0 Asymptomatic menopausal state; Z79.899 Other long term (current) drug therapy
CPT/HCPCS: 77063; 77067; 77080

== ENCOUNTER → 2024-03-22 | Outpatient (CLI) | payer OTHER ==
--- NOTE | 2024-04-09 15:35 | P.PN ---
Progress Note - Text Progress Note Date: 04/09/24 OUTPATIENT FOLLOW-UP NOTE TEST(S)/RESULTS: Pelvic ultrasound done on 03/22/2024 shows endometrial thickening with the endometrial stripe measuring 1.6 cm. METHOD OF NOTIFICATION: The patient was notified by phone on 04/09/2024. PATIENT COMMENTS: The patient states the bloody discharge has returned after it seemed to have stopped for several days. DIAGNOSIS: Postmenopausal bleeding with thickened endometrial stripe. DISCUSSION: The patient will be scheduled for an endometrial biopsy in the near future. Hemoccult testing from stool samples brought in on 03/22/2024 were both negative and the patient will was notified about that. PLAN: As above.
--- NOTE | 2024-04-12 10:01 | US ---
Site ID [facility] Patient Stephanie Man A ID [id number] Age/Gender: 64Y, F Order # N/A Procedure US PELVIS COMPLETE TRANSVAG Date 03/22/2024 3:24:00 PM EXAMINATION TYPE: US pelvis complete transvag DATE OF EXAM: 04/07/2024 COMPARISON: Pelvic ultrasound 07/23/2020 CLINICAL INDICATION: Female, Suraj 4 year old with history of discharge for months. TECHNIQUE: Transvaginal (TV) and Transabdominal (TA) . Transabdominal and transvaginal sonographic images of the pelvis were acquired. EXAM MEASUREMENTS: Uterus: 7.9 x 2.9 x 2.8 cm Endometrial Stripe: 1.6 cm Right Ovary: Not visualized Left Ovary: Nonvisualized 1. Uterus: Anteverted wnl 2. Endometrium: Thickened 3. Right Ovary: Obscured by overlying bowel gas 4. Left Ovary: Obscured by overlying bowel gas 5. Bilateral Adnexa: wnl 6. Posterior cul-de-sac: wnl IMPRESSION: 1. Thickened endometrium for patient's age. Etiologies include endometrial hyperplasia versus carcino ma versus polyp versus fibroid. Direct visualization is recommended. 2. Nonvisualization of both ovaries due to overlying bowel gas.
== END | disposition home or self-care (01) ==
LOC: RADUSWWP 12:00
PROVIDERS: ATTEND Obstetrics & Gynecology
DX: N95.0 Postmenopausal bleeding (principal); R93.89 Abnormal findings on diagnostic imaging of other specified body structures
CPT/HCPCS: 76830; 76856

== ENCOUNTER → 2024-05-01 | Day surgery (SDC) | payer OTHER ==
[2024-05-01 12:13] VITALS: TEMP 98.4
[2024-05-01 12:44] VITALS: BP 121/72; PULSE 72; RESP 19
--- NOTE | 2024-05-01 12:53 | P.PCN ---
Date of Procedure: 05/01/24 Preoperative Diagnosis: Postmenopausal bleeding. Postoperative Diagnosis: Same Procedure(s) Performed: Endometrial biopsy Anesthesia: none Surgeon: Luis E Moore IV fluids (ml): 1 Pathology: other (Endometrial tissue) Condition: stable Disposition: same day Indications for Procedure: This was a 64-year-old menopausal female who was experiencing intermittent pinkish vaginal discharge and was found to have a thickened endometrium by ultrasound. Operative Findings: The uterus sounded to 7 cm. Small tissue was obtained. Description of Procedure: We have reviewed the procedure and possible risks prior to doing the procedure. We discussed the possible risk of bleeding, infection, and uterine perforation. All questions were answered. Preprocedure vitals: Blood pressure 116/75, height 5 feet 1 inch, weight 205 pounds, temperature 98.4, pulse 78, pulse oximeter 98%. Patient was placed in the lithotomy position. Bimanual examination revealed a midposition, nongravid size uterus. There were no palpable adnexal masses or tenderness. A speculum was inserted into the vagina. The cervix and vagina were prepped with Betadine solution. An Allis clamp was used to grasp the anterior lip of the cervix. A 3 mm endometrial biopsy instrument was placed to the fundus and this measured 7 cm. Negative pressure was applied and a [id number] rotating motion was used. A small amount of tissue was obtained. The procedure was repeated once more and a small amount of tissue was again obtained. The instruments were removed. There was no active bleeding. The patient had moderate discomfort when the Allis clamp was used as well as during the biopsy procedure. The patient otherwise tolerated the procedure well. There were no complications. Post procedure blood pressure was 121/72, pulse 72, pulse oximeter 99%. The patient can use [id number] ibuprofen as directed for cramping. She was instructed to call if she has heavy bleeding, unusual pain, fever, or problems. We have discussed possible findings with the sampling including normal endometrial tissue, hyperplasia, hyperplasia with atypia, as well as cancerous cells.
--- NOTE | 2024-05-07 12:24 | P.PN ---
Progress Note - Text Progress Note Date: 05/07/24 OUTPATIENT FOLLOW-UP NOTE TEST(S)/RESULTS: Endometrial biopsy results from 05/01/2024 showed atrophic benign endometrium. METHOD OF NOTIFICATION: The patient was notified by phone on 05/07/2024. PATIENT COMMENTS: Patient states she did have some cramping and some spotting after the procedure and this has resolved. DIAGNOSIS: Benign endometrial biopsy DISCUSSION: The patient was instructed to call if she has recurrent vaginal bleeding or problems. If she is having recurrent vaginal bleeding, she will be referred for possible hysteroscopy and D&C. PLAN: As above.
--- NOTE | 2024-05-09 14:55 | WWPN ---
[facility] - PROGRESS NOTE The patient's lab test results which was done on 03/22/2024, was given to the patient by phone. A fecal occult blood test was done and was negative x2. The patient was notified by phone. She was instructed to call if she is having recurrent bleeding or problems. The patient states she had a pelvic ultrasound also done on 03/22/2024. These results are pending and she will be called when I do receive those results. She understands there may be a delay because of the ongoing computer problem with [facility]. MMODL / IJN: [id number] /
== END ==
LOC: WWCWWP 11:35
PROVIDERS: ATTEND Obstetrics & Gynecology
DX: N85.8 Other specified noninflammatory disorders of uterus (principal); Z78.0 Asymptomatic menopausal state
CPT/HCPCS: 88305

== ENCOUNTER → 2024-05-03 | Outpatient (CLI) | payer OTHER ==
--- NOTE | 2024-05-04 01:26 | MR ---
EXAMINATION TYPE: MR shoulder LT wo con DATE OF EXAM: 05/03/2024 COMPARISON: Outside left shoulder x-ray March 29, 2024 HISTORY: Left shoulder pain, injury, hx surgery October 2023. TECHNIQUE: Multiplanar, multisequence imaging of the left shoulder is performed without contrast. FINDINGS: Rotator Cuff: Some increased signal in the infraspinatus tendon. There is more prominent increased si gnal and partial tearing of the supraspinatus tendon. There is susceptibility artifact from prior rot ator cuff surgical repair. Heterogeneous subscapularis tendon. Rotator cuff muscle bulk is preserved. Acromioclavicular Joint: Moderate capsular hypertrophy. Mild spurring. Glenohumeral Joint: Small joint effusion. No significant spurring. Labrum: Blunting superior labrum. Labral anchor is not identified.. Biceps Tendon: The long head of biceps is not identified in normal location within bicipital groove. Bone marrow signal: No focal abnormal marrow signal is appreciated. Other: No additional significant abnormality is appreciated. IMPRESSION: 1. Evidence of rotator cuff surgical repair. There is significant recurrent tear of the distal supras pinatus tendon. 2. Superior labral tear. Likely tear and dislocation of long head of biceps tendon. [facility], , 05/04/2024 1:24 AM
== END | disposition home or self-care (01) ==
LOC: RADMRIMAIN 10:21
PROVIDERS: ATTEND Orthopaedic Surgery
DX: M25.512 Pain in left shoulder

== ENCOUNTER 2024-07-01 17:52 | Emergency (ER) | payer OTHER ==
[2024-07-01 18:15] VITALS: RESP 16; TEMP 97.7
--- NOTE | 2024-07-01 18:17 | ED ---
Lower Extremity Injury HPI - General Source: patient, RN notes reviewed Mode of arrival: ambulatory Limitations: no limitations <Kathy Carrero - Last Filed: 07/01/24 18:18> - General Source: patient, RN notes reviewed Mode of arrival: ambulatory Limitations: no limitations <Eli Lopez - Last Filed: 07/05/24 02:55> - General Chief Complaint: Extremity Injury, Lower Stated Complaint: RT KNEE PAIN, URGENT CARE SENT Time Seen by Provider: 07/01/24 18:02 - History of Present Illness Initial Comments: Quick [id number] female presenting to emergency department with referral from urgent care for complaint of right knee injury. States about 2 weeks ago she fell onto her right knee. X-rays concerning for fracture of the patella. (Kathy Carrero) 64-year-old female presenting to the ER with a chief complaint of right knee pain. Patient states about 2 weeks ago she accidentally tripped when walking out of her home causing her to land on bilateral knees. She states since then she has been having intense pain to bilateral knees but mainly her right knee. She reports edema to the joint as well. She denies any head injury or loss of consciousness. No dizziness or lightheadedness prior to fall. Patient denies any calf tenderness but did mention she noticed a large bruise forming on the medial aspect of her right calf. Denies any limited range of motion. Patient is able to bear weight. Patient has been taking [id number] ibuprofen and Tylenol for pain control. No distal paresthesias. No other injuries or complaints. (Eli Lopez) - Related Data Home Medications Medication Instructions Recorded Confirmed Levothyroxine Sodium [Synthroid] 112 mcg PO QAM 09/07/21 05/01/24 Acetaminophen [Tylenol Extra 500 - 1,000 mg PO Q8HR PRN 11/06/23 05/01/24 Strength] Losartan-Hctz 50-12.5 mg [Hyzaar 1 tab PO DAILY 11/06/23 05/01/24 50-12.5] Previous Rx's Medication Instructions Recorded Triamcinolone 0.1% Cream [Kenalog 1 applicatio TOPICAL BID PRN #30 gm 03/05/24 0.1% Cream] Allergies Allergy/AdvReac Type Severity Reaction Status Date / Time No Known Allergies Allergy Verified 07/01/24 18:15 Review of Systems ROS Other: All systems not noted in ROS Statement are negative. <Kathy Carrero - Last Filed: 07/01/24 18:18> ROS Other: All systems not noted in ROS Statement are negative. <Eli Lopez - Last Filed: 07/05/24 02:55> ROS Statement: Those systems with pertinent positive or pertinent negative responses have been documented in the HPI. Past Medical History Past Medical History: Hypertension, Thyroid Disorder Additional Past Medical History / Comment(s): Hypothyroidism. 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 History of Any Multi-Drug Resistant Organisms: None Reported Past Surgical History: Appendectomy, Breast Surgery, Hernia Repair, Orthopedic Surgery Additional Past Surgical History / Comment(s): Abdominal hernia repair, left breast biopsy, and 2 surgeries for ectopic pregnancies. Bilateral rotator cuff surgery. Past Anesthesia/Blood Transfusion Reactions: No Reported Reaction Past Psychological History: No Psychological Hx Reported Smoking Status: Never smoker Past Alcohol Use History: None Reported Past Drug Use History: None Reported - Past Family History Sister(s) Family Medical History: Cancer, Liver Disease Additional Family Medical History / Comment(s): Breast cancer. Mother Family Medical History: No Reported History Father Family Medical History: Dementia, Myocardial Infarction ([place]) Additional Family Medical History / Comment(s): . <Kathy Carrero - Last Filed: 07/01/24 18:18> General Exam Limitations: no limitations <Kathy Carrero - Last Filed: 07/01/24 18:18> General appearance: alert, in no apparent distress Respiratory exam: Present: normal lung sounds bilaterally. Absent: respiratory distress, wheezes, rales, rhonchi, stridor Cardiovascular Exam: Present: regular rate, normal rhythm, normal heart sounds. Absent: systolic murmur, diastolic murmur, rubs, gallop, clicks Extremities exam: Present: full ROM, tenderness (Right patella. Patient has full range of motion. Extensor mechanism intact. 2+ right DP and PT pulse. There is a contusion to the medial right calf.), normal capillary refill Neurological exam: Present: alert, oriented X3, CN II-XII intact Skin exam: Present: warm, dry, intact, normal color. Absent: rash <Eli Lopez - Last Filed: 07/05/24 02:55> - General Exam Comments Initial Comments: Visual Physical Exam Vital signs reviewed General: Well-appearing, nontoxic, no acute distress. Head: Normocephalic, atraumatic Eyes: PERRLA, EOMI ENT: Airway patent Chest: Nonlabored breathing Skin: No visual rash, normal skin tone Neuro: Alert and oriented 3 Musculoskeletal: No gross abnormalities (Kathy Carrero) Course Vital Signs 07/01/24 07/01/24 18:13 20:21 Temperature 97.7 F Pulse Rate 71 69 Respiratory 16 16 Rate Blood Pressure 146/93 140/86 O2 Sat by Pulse 99 97 Oximetry Medical Decision Making <Kathy Carrero - Last Filed: 07/01/24 18:18> - Radiology Data Radiology results: report reviewed, image reviewed <Eli Lopez - Last Filed: 07/05/24 02:55> - Medical Decision Making I completed the quick note portion of this chart signed Kathy Carrero PA-C (Kathy Carrero) Was pt. sent in by a medical professional or institution ([facility], ECHOCARDIOGRAPH TECH, urgent care, hospital, or shelter...) When possible be specific @ -Patient sent by urgent care for further evaluation of possible patella fracture. Did you speak to anyone other than the patient for history (EMS, parent, family, police, friend...)? What history was obtained from this source @ -No Did you review nursing and triage notes (agree or disagree)? Why? @ -I reviewed and agree with nursing and triage notes Were old charts reviewed (outside hosp., previous admission, EMS record, old EKG, old radiological studies, urgent care reports/EKG's, shelter records)? Report findings @ -No old charts were reviewed Differential Diagnosis (chest pain, altered mental status, abdominal pain women, abdominal pain men, vaginal bleeding, weakness, fever, dyspnea, syncope, headache, dizziness, GI bleed, back pain, seizure, CVA, palpatations, mental health, musculoskeletal)? @ -Differential Musculoskeletal: Muscular strain, contusion, ligament sprain, fracture, arthritis, septic arthritis, bursitis, cellulitis, muscle spasm, nerve compression, DVT, arterial occlusion, herpes zoster, electrolyte abnormality, tumor.... This is not meant to be in all inclusive list EKG interpreted by me (3pts min.). @ -None done X-rays interpreted by me (1pt min.). @ -None done CT interpreted by me (1pt min.). @ -CT right knee showing no acute evidence of fracture or dislocation. There is a small suprapatellar joint effusion and soft tissue edema. U/S interpreted by me (1pt. min.). @ -Ultrasound right lower extremity negative for acute evidence of DVT. What testing was considered but not performed or refused? (CT, X-rays, U/S, labs)? Why? @ -None What meds were considered but not given or refused? Why? @ -None Did you discuss the management of the patient with other professionals (professionals i.e. , PA, ECHOCARDIOGRAPH TECH, lab, RT, psych nurse, social worker aide, medical billing representative, teacher, aboriginal home school liaison officer, case assistant)? Give summary @ -No Was smoking cessation discussed for >3mins.? @ -No Was critical care preformed (if so, how long)? @ -No Were there social determinants of health that impacted care today? How? (Homelessness, low income, unemployed, alcoholism, drug addiction, transportation, low edu. Level, literacy, decrease access to med. care, fci, rehab)? @ -No Was there de-escalation of care discussed even if they declined (Discuss DNR or withdrawal of care, Hospice)? DNR status @ -No What co-morbidities impacted this encounter? (DM, HTN, Smoking, COPD, CAD, Cancer, CVA, ARF, Chemo, Hep., AIDS, mental health diagnosis, sleep apnea, morbid obesity)? @ -None Was patient admitted / discharged? Hospital course, mention meds given and route, prescriptions, significant lab abnormalities, going to OR and other pertinent info. @ -Discharge. 64-year-old female presented to the ER for evaluation of right knee pain status post fall x 2 weeks ago. Patient sent by urgent care. History and physical exam completed. Vitals within normal limits. Patient in no signs of acute distress nontoxic-appearing. Right lower extremities neurovascular intact. Patient has full range of motion of right lower extremity and knee. There is tenderness to right patella and a contusion to right calf. CT performed negative for acute evidence of fracture or dislocation. There is a small suprapatellar joint effusion and soft tissue edema. Ultrasound performed and completed due to contusion of right calf to rule out DVT. Ultrasound is negative for DVT. Patient given p.o. ibuprofen for pain control. Upon reevaluation, patient resting comfortably in exam room no signs of acute distress. Results discussed with patient, all questions answered. Strict return parameters discussed. Patient discharged in stable condition with follow-up to PCP. Patient verbally expressed understanding and agreement with care plan. Case discussed with ED attending, Dr. Edmond. Undiagnosed new problem with uncertain prognosis? @ -No Drug Therapy requiring intensive monitoring for toxicity (Heparin, Nitro, Insulin, Cardizem)? @ -No Were any procedures done? @ -No Diagnosis/symptom? @ -Knee pain Acute, or Chronic, or Acute on Chronic? @ -Acute Uncomplicated (without systemic symptoms) or Complicated (systemic symptoms)? @ -Uncomplicated Side effects of treatment? @ -No Exacerbation, Progression, or Severe Exacerbation? @ -No Poses a threat to life or bodily function? How? (Chest pain, [place], [place], pneumonia, PE, COPD, DKA, ARF, appy, cholecystitis, CVA, Diverticulitis, Homicidal, Suicidal, threat to staff... and all critical care pts) @ -No (Eli Lopez) Disposition <Kathy Carrero - Last Filed: 07/01/24 18:18> Is patient prescribed a controlled substance at d/c from ED?: No Time of Disposition: 20:15 <Eli Lopez - Last Filed: 07/05/24 02:55> Clinical Impression: Knee pain Disposition: HOME SELF-CARE Condition: Stable Instructions (If sedation given, give patient instructions): Knee Pain (ED) Additional Instructions: Continue with [id number] ibuprofen and Tylenol for pain control. Follow- up with PCP. Return to the ER with any new or worsening concerns. Referrals: Krishan Dial MD [Primary Care Provider] - 1-2 days
[2024-07-01] MEDS: IBUPROFEN 800 MG TAB PO STA (19:19)
--- NOTE | 2024-07-01 19:50 | CT ---
EXAMINATION TYPE: CT knee RT wo con DATE OF EXAM: 07/01/2024 6:50 PM COMPARISON: None available at this institution. CLINICAL INDICATION: Female, 64 years old with history of fall, injury, xr fx of patella; PHH, right knee pain following fall TECHNIQUE: Axial images were obtained of the CT knee RT wo con, Additional coronal and sagittal refor matted images and soft tissue and bone window were obtained for review. 3-D reconstruction was create d on a separate workstation. CT DLP: 155.5 mGycm, Automated exposure control for dose reduction was used. FINDINGS: No acute fracture or dislocation. Osseous structures qualitatively mildly demineralized. Check compar tmental degenerative osteoarthritis, most pronounced in the medial compartment where there is mild to moderate joint space loss. Prepatellar soft tissue swelling/edema. Small suprapatellar joint effusio n. Traction enthesophyte noted along the superior margin of patella at the quadriceps insertion site. Marginal osteophyte formation visualized along the medial and lateral femoral condyles as well as th e medial and lateral tibial plateaus. Well-corticated ossific density adjacent to the medial femoral condyle felt to most likely reflect sequelae of prior injury. Venous varices partially visualized. IMPRESSION: 1. No evidence of acute fracture or dislocation. 2. Small suprapatellar joint effusion and soft tissue edema/swelling. 3. Tricompartmental degenerative arthritis as above. [facility], , 07/01/2024 7:48 PM
--- NOTE | 2024-07-01 19:51 | US ---
EXAMINATION TYPE: US venous doppler duplex LE RT DATE OF EXAM: 07/01/2024 7:43 PM COMPARISON: NONE CLINICAL INDICATION: Female, 64 years old with history of calf bruising; Patient states fall onto rig ht knee, right knee pain, calf bruising. No hx DVT. Patient not on thinners, TECHNIQUE: The lower extremity deep venous system is examined utilizing real time linear array sonog mushtaq with graded compression, color doppler sonography, and spectral doppler. SIDE PERFORMED: Right FINDINGS: VESSELS IMAGED: Common Femoral Vein Deep Femoral Vein Greater Saphenous Vein * Femoral Vein Popliteal Vein Small Saphenous Vein * Proximal Calf Veins (* superficial vessels) Right Leg: Negative for DVT, Color Doppler imaging shows patency of the vessels. Spectral waveforms are within normal limits. IMPRESSION: No ultrasound evidence for deep venous thrombosis. [facility], , 07/01/2024 7:48 PM
[2024-07-01 20:22] VITALS: BP 140/86; PULSE 69
== END 2024-07-01 20:21 | disposition home or self-care (01) ==
LOC: EC 17:52
DX: S80.11XA Contusion of right lower leg, initial encounter (principal); W01.0XXA Fall on same level from slipping, tripping and stumbling without subsequent striking against object, initial encounter; Y92.009 Unspecified place in unspecified non-institutional (private) residence as the place of occurrence of the external cause; Y93.01 Activity, walking, marching and hiking
CPT/HCPCS: 99284

== ENCOUNTER → 2024-07-12 | Outpatient (CLI) | payer OTHER ==
[2024-07-12 15:34] LABS: Basophils # (A) 0.03 X 10*3/uL (0.00-0.10); Basophils % (A) 0.4 %; Eosinophils % (A) 1.4 %; HCT 43.4 % (37.2-46.3); HGB 13.4 g/dL (12.0-15.0); Lymphocytes # (A) 1.97 X 10*3/uL (0.90-5.00); Lymphocytes % (A) 28.1 %; MCH 27.7 pg (27.0-32.0); MCHC 30.9 g/dL (32.0-37.0); MCV 89.7 FL (80.0-97.0); Mean Platelet Volume 11.2 FL (9.5-12.2); Monocytes # (A) 0.65 X 10*3/uL (0.20-1.00); Monocytes % (A) 9.3 %; NRBC Per 100 WBC 0 X 10*3/uL (0.00-0.01); Neutrophils # (A) 4.25 X 10*3/uL (1.80-7.70); Neutrophils % (A) 60.5 %; Platelet Count 274 X 10*3/uL (140-440); RBC 4.84 X 10*6/uL (4.10-5.20); RDW 14.1 % (11.5-14.5); WBC 7.02 X 10*3/uL (4.50-10.00)
[2024-07-12 15:38] LABS: BUN/Creat Ratio 32.83 Ratio (12.00-20.00); Blood Urea Nitrogen 19.7 mg/dL (9.0-27.0); Calcium 8.9 mg/dL (8.7-10.3); Carbon Dioxide 27.6 mmol/L (21.6-31.8); Chloride 105 mmol/L (96-109); Glucose 92 mg/dL (70-110); Potassium 4.1 mmol/L (3.5-5.5); Sodium 141 mmol/L (135-145)
== END | disposition home or self-care (01) ==
LOC: LABPAT 10:45
PROVIDERS: ATTEND Orthopaedic Surgery
DX: M75.41 Impingement syndrome of right shoulder (principal)
CPT/HCPCS: 80048; 85025

== ENCOUNTER → 2024-08-21 | Outpatient (CLI) | payer OTHER ==
[2024-08-21 15:01] LABS: Basophils # (A) 0.04 X 10*3/uL (0.00-0.10); Basophils % (A) 0.6 %; Eosinophils # (A) 0.43 X 10*3/uL (0.04-0.35); Eosinophils % (A) 5.9 %; HCT 47.6 % (37.2-46.3); HGB 14.8 g/dL (12.0-15.0); Lymphocytes # (A) 1.81 X 10*3/uL (0.90-5.00); MCH 27.7 pg (27.0-32.0); MCHC 31.1 g/dL (32.0-37.0); MCV 89.1 FL (80.0-97.0); Mean Platelet Volume 11.7 FL (9.5-12.2); Monocytes # (A) 0.58 X 10*3/uL (0.20-1.00); NRBC Per 100 WBC 0 X 10*3/uL (0.00-0.01); Neutrophils # (A) 4.36 X 10*3/uL (1.80-7.70); Neutrophils % (A) 60.4 %; Platelet Count 272 X 10*3/uL (140-440); RBC 5.34 X 10*6/uL (4.10-5.20); RDW 13.7 % (11.5-14.5); WBC 7.23 X 10*3/uL (4.50-10.00)
[2024-08-21 16:16] LABS: BUN/Creat Ratio 22.86 Ratio (12.00-20.00); Calcium 9.6 mg/dL (8.7-10.3); Carbon Dioxide 29.2 mmol/L (21.6-31.8); Chloride 99 mmol/L (96-109); Glucose 91 mg/dL (70-110); Potassium 4.2 mmol/L (3.5-5.5); Sodium 140 mmol/L (135-145)
== END | disposition home or self-care (01) ==
LOC: LABPAT 08:55
PROVIDERS: ATTEND Orthopaedic Surgery
DX: M75.42 Impingement syndrome of left shoulder (principal)
CPT/HCPCS: 36415; 80048; 85025

== ENCOUNTER 2024-09-13 05:36 | Day surgery (SDC) | payer OTHER ==
[2024-09-10 13:50] VITALS: BMI 36.8
--- NOTE | 2024-09-12 08:54 | P.HPOR ---
History of Present Illness H&P Date: 09/12/24 Chief Complaint: Left shoulder pain The patient is a 64-year-old [id number] female who presents with left shoulder pain after an injury February 06, 2024. She had a fall landing on her left side. She has had pain with any attempted overhead use and at night ever since. She has tried medications along with home exercises with minimal relief. She notes daily pain. She had a previous left rotator cuff repair in November 2023. Review of Systems Per HPI Past Medical History Past Medical History: Hypertension, Thyroid Disorder Additional Past Medical History / Comment(s): Hypothyroidism. History of Any Multi-Drug Resistant Organisms: None Reported Past Surgical History: Appendectomy, Breast Surgery, Hernia Repair, Orthopedic Surgery Additional Past Surgical History / Comment(s): Abdominal hernia repair, left breast biopsy, and 2 surgeries for ectopic pregnancies, bilateral rotator cuff surgery. Past Anesthesia/Blood Transfusion Reactions: No Reported Reaction Smoking Status: Never smoker - Past Family History Sister(s) Family Medical History: Cancer, Liver Disease Additional Family Medical History / Comment(s): Breast cancer. Mother Family Medical History: No Reported History Father Family Medical History: Dementia, Myocardial Infarction ([place]) Additional Family Medical History / Comment(s): . Medications and Allergies Home Medications Medication Instructions Recorded Confirmed Type Levothyroxine Sodium [Synthroid] 112 mcg PO QAM 09/07/21 09/10/24 History Losartan-Hctz 50-12.5 mg [Hyzaar 1 tab PO QAM 11/06/23 09/10/24 History 50-12.5] Cholecalciferol (Vitamin D3) 100 mcg PO DAILY 09/10/24 09/10/24 History [Vitamin D3 (50 Mcg = 2000 Iu)] Allergies Allergy/AdvReac Type Severity Reaction Status Date / Time No Known Allergies Allergy Verified 09/10/24 13:38 Physical Examination - Shoulder left Tenderness with palpation: anterior, bicipital groove Pain: with abduction, with forward flexion ROM: forward flexion: 80 degrees ROM: internal rotation: mid lumbar ROM: external rotation: 60 degrees Strength: abduction: 4/5 Tests: internal impingement tests: positive, external impingment tests: positive Results The patient is a well-developed well-nourished female 5 foot 2, 199 pounds of endomorphic habitus. HEENT exam is nonfocal, neck is supple. She is tender about the left shoulder anterior subacromial space. Moderate crepitus is noted. Impingement test, Neer test, and Speed test are positive. External rotation is 5 -/5, abduction is 4 -/5. Her distal neurovascular appears intact in the left upper extremity. - Diagnostic results Shoulder MRI: image reviewed (MRI of the left shoulder shows evidence of a supraspinatus retear along with biceps subluxation.) Assessment and Plan Assessment: Left rotator cuff retear/proximal biceps strain Plan: I talked to the patient at length regarding her condition along with treatment options. At this point she is quite symptomatic after this reinjury. After thorough discussion she opts to proceed with surgery. We will plan to proceed with left shoulder arthroscopy with rotator cuff repair in addition to possible biceps tenotomy versus tenodesis. Risks and benefits were discussed at length in layman's terms. We will likely perform that as an outpatient procedure.
[2024-09-13 06:40] VITALS: RESP 16; TEMP 97.4
[2024-09-13] MEDS: SCOPOLAMINE 1 MG/72 HR PATCH TRANSDERM ONE (06:46)
[2024-09-13] MEDS: ONDANSETRON 4 MG/2 ML VIAL IVP ONE (06:46)
[2024-09-13] MEDS: DEXAMETHASONE SOD PHOSPHATE 4 MG/ML 1 ML VIAL IV ONE (06:46)
[2024-09-13] MEDS: LACTATED RINGERS 1,000 ML IV SCH (06:46)
[2024-09-13] MEDS: IV FLUID CONTINUATION 1,000 ML IV ONE (06:48)
[2024-09-13] MEDS: MIDAZOLAM 2 MG/2 ML VIAL IV PRN (06:55)
[2024-09-13] MEDS ORDERED: HYDROmorphone 0.5 MG/0.5 ML SYRINGE IVP PRN (07:00)
--- NOTE | 2024-09-13 07:30 | P.ANPRN ---
Procedure Note - Anesthesia - Nerve Block Performed Left Interscalene Single Time Out Performed: Yes ([id number]) Date of Procedure: 09/13/24 Procedure Start Time: 07:00 Procedure Stop Time: 07:05 Location of Patient: PreOp Indication: Acute Post-Operative Pain, Requested by Surgeon Sedation Type: Sedate with meaningful contact maintained Preparation: Sterile Prep, Sterile Dressing Position: Sitting Catheter: None Needle Types: Pajunk Needle Gauge: Other (see comment) (22G) Ultrasound used to visualize needle placement: Yes Ultrasound used to observe medication spread: Yes Injectate: 0.5% Ropivacaine (see comment for volume) (21 mL of block solution containing 20 ml of 0.5% ropivacaine mixed with 4 mg of dexamethasone) Blood Aspirated: No Pain Paresthesia on Injection Noted: No Resistance on Injection: Normal Image Stored and Saved: Yes Events: Uneventful and Well Tolerated
[2024-09-13] MEDS ORDERED: ROPIVACAINE 5 MG/ML 30 ML VIAL ONE (07:41)
[2024-09-13] MEDS ORDERED: PHENYLEPHRINE-0.9% NACL SYG 1,000 MCG/10 ML SYRINGE ONE (07:41)
[2024-09-13] MEDS ORDERED: GLYCOPYRROLATE 0.2 MG/ML 2 ML VIAL ONE (07:41)
[2024-09-13] MEDS ORDERED: PHENYLEPHRINE 10 MG/ML VIAL ONE (07:41)
[2024-09-13] MEDS ORDERED: DEXAMETHASONE SOD PHOSPHATE 4 MG/ML 1 ML VIAL ONE (07:41)
[2024-09-13] MEDS ORDERED: LIDOCAINE 1% INJ 10MG/ML (20 ML MDV) ONE (07:41)
[2024-09-13] MEDS ORDERED: SUCCINYLCHOLINE CHLORIDE 200 MG/10 ML VIAL IV ONE (07:41)
[2024-09-13] MEDS ORDERED: PROPOFOL 10 MG/ML 20 ML VIAL IV ONE (07:41)
[2024-09-13] MEDS: EPINEPHrine (PF) 1 ML in SODIUM CHLORIDE 0.9% IRRIGATIO 3,000 ML IRRIGATION ONE ×4 (08:04)
--- NOTE | 2024-09-13 09:30 | P.OP ---
Date of Procedure: 09/13/24 Preoperative Diagnosis: Left rotator cuff retear Postoperative Diagnosis: 3 cm rotator cuff tear Procedure(s) Performed: Left shoulder arthroscopic revision subacromial decompression/rotator cuff repair Implants: Arthrex 4.75 mm swivel lock anchor x 2, 5.5 mm swivel lock anchor x 2 Anesthesia: JIGAR, tiny Surgeon: Devon Meek Workers' Compensation Mediator #1: Thang Viera Estimated Blood Loss (ml): 10 Pathology: none sent Condition: stable Disposition: PACU Indications for Procedure: The patient is a 64-year-old female who presents with left shoulder pain and [place] A discussion of the risks and benefits of conservative measures versus operative intervention was made with the patient. She opted to proceed with surgery. Her MRI showed evidence of rotator cuff retear/extension. Risks and benefits of surgery were discussed at length in layman's terms. Specific risks of surgery to include infection, neurovascular treat, development of blood clots, possible tendon rerupture, possible postoperative stiffness, and possible need for subsequent procedures was discussed. Informed consent was obtained. Operative Findings: As below Description of Procedure: The patient was brought to the operating room, and after induction of general anesthesia was placed in a beachchair position. A preoperative interscalene block was placed for postoperative analgesia. I examined the left shoulder. There was no gross block to passive motion or gross glenohumeral instability. The left upper extremity was prepped and draped in normal fashion. The bony out lines the acromion, distal clavicle, and coracoid process were outlined with a skin marker. The glenohumeral joint was inflated with 50 mL of saline utilizing a spinal needle from posterior approach. A posterior portal was made through a 5 mm skin incision 1 cm medial and inferior to the posterior lateral border time. A blunt trocar was used to easily into the joint. Diagnostic arthroscopy was performed. An anterior portal was made just lateral to the coracoid process entering the joint above the subscapularis tendon. The subscapularis tendon appeared to be intact. Anterior labrum was intact. The inferior recess was inspected. The posterior labrum was intact. The previous biceps tenotomy was noted. On inspection the rotator cuff, a full-thickness tear involving the anterior supraspinatus was noted. Previous suture material was present. The scope was then placed into the subacromial space. A lateral portal was made 2 centimeters inferior to the anterior lateral border of the acromion. The rotator cuff was then inspected and the recurrent tearing was noted to involve the supraspinatus measuring approximately 3 cm. Previous suture material was removed. The edges of the rotator cuff were debrided back to a stable base. A revision subacromial decompression was performed as there was some recurrent anterior spurring. The greater tuberosity was lightly decorticating with a shaver down to a bleeding bony surface. An accessory superior lateral portal was made just off the lateral edge of the acromion for anchor placement. 2 anchors were then placed just off the articular surface with the appropriate starting awl. 4.75 mm anchors preloaded with #2 fiber tape were placed. Good purchase was obtained. These fiber tapes were then passed the rotator cuff with a scorpion suture passer. A lateral row was created crisscrossing these tapes. 5.5 mm swivel lock anchors x 2 were placed laterally. Good purchase was obtained. Final arthroscopic view showed adequate compression at the footprint. The arthroscope was then removed. The portals were closed with simple 3-0 nylon sutures. A sterile dressing was applied in addition to an abductor brace. The patient was then awoken from general anesthesia and transferred to recovery room in good condition. Blood loss was estimated at 10 mL. No complications were incurred. Sponge and needle counts were correct in the case. Thang LEAL assisted and the major components of the case to include arm positioning, anchor placement, and rotator cuff repair.
[2024-09-13 11:11] VITALS: BP 109/73; PULSE 67
== END 2024-09-13 11:21 | disposition home or self-care (01) ==
LOC: OR 05:36
PROVIDERS: ATTEND Orthopaedic Surgery
DX: S46.012A Strain of muscle(s) and tendon(s) of the rotator cuff of left shoulder, initial encounter (principal); S46.112A Strain of muscle, fascia and tendon of long head of biceps, left arm, initial encounter; G89.18 Other acute postprocedural pain; I10 Essential (primary) hypertension; E03.9 Hypothyroidism, unspecified; Z98.890 Other specified postprocedural states; Z79.890 Hormone replacement therapy; Z79.899 Other long term (current) drug therapy; W01.0XXA Fall on same level from slipping, tripping and stumbling without subsequent striking against object, initial encounter; Y93.9 Activity, unspecified; Y92.520 Airport as the place of occurrence of the external cause
CPT/HCPCS: 29827; 29826; 64415; C1713 ×2; C1894; J2250; J0330; J1100; J0690; J2405; J0171; J2003; J2795; J2704; J2371 ×2; J1596

== ENCOUNTER 2025-01-22 17:51 | Emergency (ER) | payer MEDICARE, OTHER ==
--- NOTE | 2025-01-22 18:39 | ED ---
General Adult HPI - General Source: patient, RN notes reviewed Mode of arrival: ambulatory Limitations: no limitations <Kathy Carrero - Last Filed: 01/22/25 18:39> <Walker Ariza - Last Filed: 01/23/25 01:07> - General Chief complaint: GI Bleed Stated complaint: Blood in stool/Bodychills/Fever Time Seen by Provider: 01/22/25 18:00 - History of Present Illness Initial comments: Quick [id number] female presenting to emergency department with complaints of abdominal pain with associated diarrhea since 0300 this morning. reports loose stools all day with multiple bouts of bright red bloody diarrhea. end orsing pain of the right upper and left sided abdomen. Denies history of GI bleed or diverticulitis. Denies blood thinner use. (Kathy Carrero) - Related Data Home Medications Medication Instructions Recorded Confirmed Levothyroxine Sodium [Synthroid] 112 mcg PO QAM 09/07/21 09/13/24 Losartan-Hctz 50-12.5 mg [Hyzaar 1 tab PO QAM 11/06/23 09/13/24 50-12.5] Cholecalciferol (Vitamin D3) 100 mcg PO DAILY 09/10/24 09/13/24 [Vitamin D3 (50 Mcg = 2000 Iu)] Previous Rx's Medication Instructions Recorded HYDROcodone/APAP 7.5-325MG [[place] 1 tab PO Q6HR PRN #28 tab 09/13/24 7.5-325] Allergies Allergy/AdvReac Type Severity Reaction Status Date / Time No Known Allergies Allergy Verified 09/13/24 06:19 Review of Systems ROS Other: All systems not noted in ROS Statement are negative. <Kathy Carrero - Last Filed: 01/22/25 18:39> ROS Other: All systems not noted in ROS Statement are negative. <Walker Ariza - Last Filed: 01/23/25 01:07> ROS Statement: Those systems with pertinent positive or pertinent negative responses have been documented in the HPI. Past Medical History Past Medical History: Hypertension Additional Past Medical History / Comment(s): Hypothyroidism. 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 History of Any Multi-Drug Resistant Organisms: None Reported Past Surgical History: Hernia Repair, Orthopedic Surgery Additional Past Surgical History / Comment(s): Abdominal hernia repair, left breast biopsy, and 2 surgeries for ectopic pregnancies. Bilateral rotator cuff surgery. Past Anesthesia/Blood Transfusion Reactions: No Reported Reaction Past Psychological History: No Psychological Hx Reported Smoking Status: Never smoker - Past Family History Sister(s) Family Medical History: Cancer, Liver Disease Additional Family Medical History / Comment(s): Breast cancer. Mother Family Medical History: No Reported History Father Family Medical History: Dementia, Myocardial Infarction (MS) Additional Family Medical History / Comment(s): . <Kathy Carrero - Last Filed: 01/22/25 18:39> General Exam Limitations: no limitations <Alexa Carrerooe - Last Filed: 01/22/25 18:39> General appearance: alert, in no apparent distress Head exam: Present: atraumatic, normocephalic Eye exam: Present: normal appearance, PERRL ENT exam: Present: mucous membranes dry Neck exam: Present: normal inspection. Absent: tenderness, meningismus Respiratory exam: Present: normal lung sounds bilaterally. Absent: respiratory distress, wheezes Cardiovascular Exam: Present: regular rate, normal rhythm GI/Abdominal exam: Present: soft, tenderness, hyperactive bowel sounds. Absent: distended, guarding, rebound Extremities exam: Present: normal inspection, normal capillary refill Neurological exam: Present: alert, oriented X3, CN II-XII intact. Absent: motor sensory deficit <ToWalker Obando - Last Filed: 01/23/25 01:07> - General Exam Comments Initial Comments: Visual Physical Exam Vital signs reviewed General: Well-appearing, nontoxic, no acute distress. Head: Normocephalic, atraumatic Eyes: PERRLA, EOMI ENT: Airway patent Chest: Nonlabored breathing Skin: No visual rash, normal skin tone Neuro: Alert and oriented 3 Musculoskeletal: No gross abnormalities (Stieler,Kathy) Course Vital Signs 01/22/25 01/22/25 18:23 23:37 Temperature 98.9 F 97.8 F Pulse Rate 72 70 Respiratory 20 17 Rate Blood Pressure 174/92 139/81 O2 Sat by Pulse 97 95 Oximetry Medical Decision Making <Kathy Carrero - Last Filed: 01/22/25 18:39> - Lab Data Result diagrams: 01/22/25 18:46 01/22/25 18:46 <Walker Ariza N - Last Filed: 01/23/25 01:07> - Medical Decision Making I completed the quick note portion of this chart signed Kathy Carrero PA-C (Kathy Carrero) Was pt. sent in by a medical professional or institution (, MEL, OCEAN FREIGHT AGENT, urgent care, hospital, or alf...) When possible be specific @ -No Did you speak to anyone other than the patient for history (EMS, parent, family, police, friend...)? What history was obtained from this source @ -No Did you review nursing and triage notes (agree or disagree)? Why? @ -I reviewed and agree with nursing and triage notes Were old charts reviewed (outside hosp., previous admission, EMS record, old EKG, old radiological studies, urgent care reports/EKG's, alf records)? Report findings @ -No old charts were reviewed Differential Abdominal Pain Women: Appendicitis, Cholecystitis, diverticulosis, ischemic bowel, pancreatitis, hepatitis, UTI, gastroenteritis, AAA, incarcerated hernia, bowel obstruction, constipation, inflammatory bowel, hepatitis, peptic ulcer disease, splenic infarction, perforated viscus, vulvitis, ovarian torsion, PID, kidney stone, placenta abruption, this is not meant to be an all-inclusive list EKG interpreted by me (3pts min.). @ -Sinus rhythm rate of 75, CT interval 148, QRS duration 86, QTc [address] segment elevation. X-rays interpreted by me (1pt min.). @ -None done CT interpreted by me (1pt min.). @ -[CT of the abdomen pelvis with contrast shows likely colitis consistent with history. There is also prominence of the bilateral renal collecting system U/S interpreted by me (1pt. min.). @ -None done What testing was considered but not performed or refused? (CT, X-rays, U/S, labs)? Why? @ -None What meds were considered but not given or refused? Why? @ -None Did you discuss the management of the patient with other professionals (professionals i.e. MEL Britt, OCEAN FREIGHT AGENT, lab, RT, psych nurse, social worker assistant, door technician, teacher, forest fire control officer, case technician)? Give summary @ -No Was smoking cessation discussed for >3mins.? @ -No Was critical care preformed (if so, how long)? @ -No Were there social determinants of health that impacted care today? How? (Homel essness, low income, unemployed, alcoholism, drug addiction, transportation, low edu. Level, literacy, decrease access to med. care, [facility], rehab)? @ -No Was there de-escalation of care discussed even if they declined (Discuss DNR or withdrawal of care, Hospice)? DNR status @ -No What co-morbidities impacted this encounter? (DM, HTN, Smoking, COPD, CAD, Cancer, CVA, ARF, Chemo, Hep., AIDS, mental health diagnosis, sleep apnea, morbid obesity)? @ -None Was patient admitted / discharged? Hospital course, mention meds given and route, prescriptions, significant lab abnormalities, going to OR and other pertinent info. @ -[64-year-old female presenting with crampy abdominal pain, diarrhea and rectal bleeding. Patient states that she had several episodes of rectal bleeding which has now turned to just watery diarrhea. She does have abdominal pain and was sent in for imaging by her primary care provider. Laboratory testing reveals normal CBC, normal CMP, and CT scan shows likely colitis. Patient reevaluated, symptoms improved with hydration and morphine. Stable for discharge with return parameters. Undiagnosed new problem with uncertain prognosis? @ -No Drug Therapy requiring intensive monitoring for toxicity (Heparin, Nitro, Insulin, Cardizem)? @ -No Were any procedures done? @ -No Diagnosis/symptom? @ -Colitis Acute, or Chronic, or Acute on Chronic? @ -Acute Uncomplicated (without systemic symptoms) or Complicated (systemic symptoms)? @ -Default Side effects of treatment? @ -No Exacerbation, Progression, or Severe Exacerbation? @ -No Poses a threat to life or bodily function? How? (Chest pain, USA, MS, pneumonia, PE, COPD, DKA, ARF, appy, cholecystitis, CVA, Diverticulitis, Homicidal, Suicidal, threat to staff... and all critical care pts) @ -Low risk at this time (Walker Ariza) - Lab Data Lab Results 01/22/25 01/22/25 01/22/25 Range/Units 18:46 18:46 18:46 WBC 10.06 H (4.50-10.00) 10*3/uL RBC 4.93 (4.10-5.20) 10*6/uL Hgb 14.0 (12.0-15.0) g/dL Hct 42.8 (37.2-46.3) % MCV 86.8 (80.0-97.0) fL MCH 28.4 (27.0-32.0) pg MCHC 32.7 (32.0-37.0) g/dL Plt Count 282 (140-440) 10*3/uL MPV 9.7 (9.5-12.2) fL Immature Gran % (Auto) 0.2 % Neutrophils % 81.3 % Lymphocytes % 11.9 % Monocytes % 5.9 % Eosinophils % 0.5 % Basophils % 0.2 % Immature Gran # 0.02 (0.00-0.04) 10*3/uL Neutrophils # 8.18 H (1.80-7.70) 10*3/uL Lymphocytes # 1.20 (0.90-5.00) 10*3/uL Monocytes # 0.59 (0.20-1.00) 10*3/uL Eosinophils # 0.05 (0.04-0.35) 10*3/uL Basophils # 0.02 (0.00-0.10) 10*3/uL PT 10.7 (10.0-12.5) sec INR 1.0 (<1.2) APTT 23.6 (22.0-30.0) sec Sodium 138 (137-145) mmol/L Potassium 3.9 (3.5-5.1) mmol/L Chloride 103 (98-107) mmol/L Carbon Dioxide 25 (22-30) mmol/L Anion Gap 10 mmol/L BUN 22 H (7-17) mg/dL Creatinine 0.63 (0.52-1.04) mg/dL Est GFR (CKD-EPI)AfAm >90 (>60 ml/min/1.73 sqM) Est GFR (CKD-EPI)NonAf >90 (>60 ml/min/1.73 sqM) Glucose 100 H (74-99) mg/dL Plasma Lactic Acid Errol (0.7-2.0) mmol/L Calcium 9.2 (8.4-10.2) mg/dL Magnesium 1.9 (1.6-2.3) mg/dL Total Bilirubin 0.7 (0.2-1.3) mg/dL AST 28 (14-36) U/L ALT 17 (4-34) U/L Alkaline Phosphatase 113 (38-126) U/L Total Protein 7.7 (6.3-8.2) g/dL Albumin 4.4 (3.5-5.0) g/dL Lipase 57 (23-300) U/L Blood Type Blood Type Confirm Blood Type Recheck Bld Type Recheck Status Antibody Screen Spec Expiration Date 01/22/25 01/22/25 01/22/25 Range/Units 18:46 18:46 19:03 WBC (4.50-10.00) 10*3/uL RBC (4.10-5.20) 10*6/uL Hgb (12.0-15.0) g/dL Hct (37.2-46.3) % MCV (80.0-97.0) fL MCH (27.0-32.0) pg MCHC (32.0-37.0) g/dL Plt Count (140-440) 10*3/uL MPV (9.5-12.2) fL Immature Gran % (Auto) % Neutrophils % % Lymphocytes % % Monocytes % % Eosinophils % % Basophils % % Immature Gran # (0.00-0.04) 10*3/uL Neutrophils # (1.80-7.70) 10*3/uL Lymphocytes # (0.90-5.00) 10*3/uL Monocytes # (0.20-1.00) 10*3/uL Eosinophils # (0.04-0.35) 10*3/uL Basophils # (0.00-0.10) 10*3/uL PT (10.0-12.5) sec INR (<1.2) APTT (22.0-30.0) sec Sodium (137-145) mmol/L Potassium (3.5-5.1) mmol/L Chloride (98-107) mmol/L Carbon Dioxide (22-30) mmol/L Anion Gap mmol/L BUN (7-17) mg/dL Creatinine (0.52-1.04) mg/dL Est GFR (CKD-EPI)AfAm (>60 ml/min/1.73 sqM) Est GFR (CKD-EPI)NonAf (>60 ml/min/1.73 sqM) Glucose (74-99) mg/dL Plasma Lactic Acid Errol 0.9 (0.7-2.0) mmol/L Calcium (8.4-10.2) mg/dL Magnesium (1.6-2.3) mg/dL Total Bilirubin (0.2-1.3) mg/dL AST (14-36) U/L ALT (4-34) U/L Alkaline Phosphatase (38-126) U/L Total Protein (6.3-8.2) g/dL Albumin (3.5-5.0) g/dL Lipase (23-300) U/L Blood Type O Positive Blood Type Confirm O Positive Blood Type Recheck No Previous Record Bld Type Recheck Status CABO Indicated Antibody Screen NEGATIVE Spec Expiration Date 01/25/2025 - 2345 Disposition <Kathy Carrero - Last Filed: 01/22/25 18:39> Is patient prescribed a controlled substance at d/c from ED?: No Time of Disposition: 01:07 <Walker Ariza - Last Filed: 01/23/25 01:07> Clinical Impression: Colitis Disposition: HOME SELF-CARE Condition: Fair Instructions (If sedation given, give patient instructions): Colitis (ED) Referrals: Krishan Dial MD [Primary Care Provider] - 1-2 days
[2025-01-22 18:54] LABS: Basophils # (A) 0.02 10*3/uL (0.00-0.10); Basophils % (A) 0.2 %; Eosinophils # (A) 0.05 10*3/uL (0.04-0.35); Eosinophils % (A) 0.5 %; HCT 42.8 % (37.2-46.3); Lymphocytes % (A) 11.9 %; MCH 28.4 pg (27.0-32.0); MCHC 32.7 g/dL (32.0-37.0); MCV 86.8 fL (80.0-97.0); Mean Platelet Volume 9.7 fL (9.5-12.2); Monocytes # (A) 0.59 10*3/uL (0.20-1.00); Monocytes % (A) 5.9 %; Neutrophils # (A) 8.18 10*3/uL (1.80-7.70); Neutrophils % (A) 81.3 %; Platelet Count 282 10*3/uL (140-440); RBC 4.93 10*6/uL (4.10-5.20); RDW 13.3 % (11.5-14.5); WBC 10.06 10*3/uL (4.50-10.00)
[2025-01-22 19:12] LABS: ALT 17 U/L (4-34); AST 28 U/L (14-36); African American GFR (CKD) >90 (>60 ml/min/1.73 sqM); Albumin 4.4 g/dL (3.5-5.0); Alkaline Phosphatase 113 U/L (38-126); Anion Gap 10 mmol/L; Blood Urea Nitrogen 22 mg/dL (7-17); Calcium 9.2 mg/dL (8.4-10.2); Carbon Dioxide 25 mmol/L (22-30); Chloride 103 mmol/L (98-107); Glucose 100 mg/dL (74-99); Lipase 57 U/L (23-300); Magnesium 1.9 mg/dL (1.6-2.3); Non-African American GFR(CKD) >90 (>60 ml/min/1.73 sqM); Potassium 3.9 mmol/L (3.5-5.1); Sodium 138 mmol/L (137-145); Total Bilirubin 0.7 mg/dL (0.2-1.3); Total Protein 7.7 g/dL (6.3-8.2)
[2025-01-22 19:37] LABS: Partial Thromboplastin Time 23.6 sec (22.0-30.0); Prothrombin Time 10.7 sec (10.0-12.5)
[2025-01-22] MEDS: SODIUM CHLORIDE 0.9% 1,000 ML IV ONE (23:29)
[2025-01-22] MEDS: MORPHINE SULFATE 4 MG/ML SYRINGE IVP STA (23:29)
[2025-01-22 23:49] VITALS: RESP 17
--- NOTE | 2025-01-23 01:01 | CT ---
EXAM: CT Abdomen and Pelvis With Intravenous Contrast CLINICAL HISTORY: ITS.REASON CT Reason: Abdominal pain, DIARRHEA TECHNIQUE: Axial computed tomography images of the abdomen and pelvis with intravenous contrast. CTDI is 36.2 mGy and DLP is 1574.7 mGy-cm. This CT exam was performed using one or more of the following dose reduction techniques: automated exposure control, adjustment of the mA and/or kV according to patient size, and/or use of iterative reconstruction technique. COMPARISON: CT abdomen/pelvis on 07/08/2011 FINDINGS: Lung bases: Unremarkable. No mass. No consolidation. Mediastinum: Small hiatal hernia. ABDOMEN: Liver: Unremarkable. No mass. Gallbladder and bile ducts: Unremarkable. No calcified stones. No ductal dilation. Pancreas: Unremarkable. No mass. No ductal dilation. Spleen: Unremarkable. No splenomegaly. Adrenals: Unremarkable. No mass. Kidneys and ureters: Duplicated left renal collecting system. Bilateral peripelvic cysts. No hydroureter or obstructing ureteral stone. Stomach and bowel: Mild prominence of the dawson of the colon may be secondary to underdistention versus colitis. Evaluation of the stomach is limited by underdistention. Diverticulosis without evidence of diverticulitis. No bowel obstruction. PELVIS: Appendix: Appendix is not visualized on this exam. Bladder: Underdistended bladder limits evaluation. Reproductive: Unremarkable as visualized. ABDOMEN and PELVIS: Intraperitoneal space: Unremarkable. No free air. No significant fluid collection. Bones/joints: Probable hemangioma in the T12 vertebral body. Mild degenerative changes of the spine. No acute fracture. No dislocation. Soft tissues: Injection granuloma in the left gluteal soft tissues. Vasculature: Phleboliths in the pelvis. No abdominal aortic aneurysm. Lymph nodes: Unremarkable. No enlarged lymph nodes. IMPRESSION: Mild prominence of the dawson of the colon may be secondary to underdistention versus colitis.
[2025-01-23 01:21] VITALS: BP 127/70; PULSE 60; TEMP 97.1
== END 2025-01-23 01:21 | disposition home or self-care (01) ==
LOC: EC 17:51
DX: K52.9 Noninfective gastroenteritis and colitis, unspecified (principal)
CPT/HCPCS: 36415; 93005; 86900; 86901; 80053; 83605; 83690; 83735; 85025; 85610; 85730; 86850; 74177; 99285; 96374; 96361; J2270; Q9967